=== PATIENT | male | born 1965 | race African-American/Black ===

== ENCOUNTER 2019-01-31 13:36 | Inpatient (IN) | payer MEDICARE, OTHER ==
[2019-01-31] MEDS ORDERED: Ampicillin/Sulbactam 3 GM in Sodium Chloride 0.9% 100 ML IVPB SCH (15:15)
[2019-01-31 15:16] LABS: Hemoglobin 12.7 g/dL (14.0-18.0); Mean Corpuscular HGB CONC 33.2 g/dL (32.0-36.0); Mean Corpuscular Volume 87.3 fL (78.0-98.0); Mean Platelet Volume 7.8 fL (7.4-10.4); Platelet Count 208 thou/uL (130-400); RBC Distribution Width 11.1 % (11.5-14.5); Red Blood Cell (RBC) Count 4.39 mill/uL (4.70-6.10)
[2019-01-31 15:34] LABS: ALT (SGPT) 14 U/L (8-55); AST (SGOT) 28 U/L (5-34); Albumin 3.8 g/dL (3.5-5.0); Alkaline Phosphatase 62 U/L (40-150); Anion Gap 12 mmol/L (10-20); BUN (Urea Nitrogen) 19 mg/dL (8.4-25.7); Bilirubin, Total 1.2 mg/dL (0.2-1.2); Calc. Creatinine Clearance 0 mL/min (70-130); Calcium 9.4 mg/dL (7.8-10.44); Carbon Dioxide 25 mmol/L (22-29); Chloride 104 mmol/L (98-107); Estimated GFR-MDRD Greater than 90; Globulin 3.8 g/dL (2.4-3.5); Glucose 144 mg/dL (70-105); Protein, Total 7.6 g/dL (6.0-8.3); Sodium 137 mmol/L (136-145)
[2019-01-31 15:38] LABS: Band 15 % (5-11); Lymphocytes 4 % (21-51); MDiff Complete? YES; Monocytes 3 % (0-10); Neutrophil 78 % (42-75); Platelet Morphology Comment Appears Adequate
[2019-01-31] MEDS ORDERED: Acetaminophen 500 MG TAB ONE (16:39)
[2019-01-31] MEDS ORDERED: hydrALAZINE 20 MG/ML VIAL SLOW IVP PRN (18:02)
[2019-01-31] MEDS ORDERED: Benzonatate 100 MG CAP PO PRN (18:02)
[2019-01-31] MEDS ORDERED: Acetaminophen 500 MG TAB PO PRN (18:02)
[2019-01-31] MEDS ORDERED: HYDROcodone/Acetaminophen 5/325 mg Tablet PO PRN ×2 (18:02)
[2019-01-31] MEDS ORDERED: Calcium Carbonate 500 MG ChewTAB PO PRN (18:02)
[2019-01-31] MEDS ORDERED: cloNIDine 0.1 MG TAB PO PRN (18:02)
[2019-01-31] MEDS ORDERED: Bisacodyl 5 MG TAB PO PRN ×2 (18:02)
[2019-01-31] MEDS ORDERED: Senokot S 8.6-50 MG TAB PO PRN ×2 (18:02)
[2019-01-31] MEDS ORDERED: Ondansetron PF 4 MG/2 ML Vial IVP PRN ×2 (18:02)
[2019-01-31] MEDS ORDERED: Diabetic Tussin 200 MG/10 ML UDCUP PO PRN (18:02)
[2019-01-31] MEDS ORDERED: Nitroglycerin 0.4 MG TAB (25 Tab Bottle) SL PRN (18:02)
[2019-01-31] MEDS ORDERED: Enoxaparin Sodium 40 MG/0.4 ML SYRINGE SC SCH (18:15)
[2019-01-31] MEDS ORDERED: traMADol HCl 50 MG TAB PO PRN (18:20)
--- NOTE | 2019-01-31 19:16 | CON ---
DATE OF CONSULTATION: 01/31/2019 CONSULTING PHYSICIAN: Dr. Jair Lake. REASON FOR CONSULTATION: Left finger infection. HISTORY OF PRESENT ILLNESS: This is a 53-year-old male, who presented to Urgent Care yesterday for swelling and pain to his left index finger. The patient states that he does not recall any trauma or injury. This was started on its own. They were prescribed some sort of antibiotic pill, which his mother states they did not obtain, but then returned to the Urgent Care again today for worsening symptoms and were transferred to our facility. Currently at bedside, most of the history is provided by the patient's mother who is at bedside. She denies any fever or drainage from the finger. He is right-hand dominant. She states that she did not obtain the antibiotics yesterday because this condition seemed to be worsening. He has no history of prior infections. PAST MEDICAL HISTORY: The patient is developmentally delayed. PAST SURGICAL HISTORY: Denies. SOCIAL HISTORY: The patient denies any alcohol use, tobacco use, or illicit drug use. He lives at home with his mother. FAMILY HISTORY: Reviewed and noncontributory. REVIEW OF SYSTEMS: A 10-point review of systems conducted and otherwise negative except for stated above. PHYSICAL EXAMINATION: VITAL SIGNS: Blood pressure is 142/85, pulse of 101, respiratory rate of 19 and unlabored, temperature of 100.0, and O2 saturation is 97% on room air. T-max of 102.5 at 1641 hours today. GENERAL: The patient is awake and alert. He is in no apparent distress. He is pleasant and cooperative with exam findings today. HEENT: Head is normocephalic and atraumatic. NECK: Supple. Trachea midline. Breathing nonlabored. EXTREMITIES: The left upper extremity was evaluated. The left index finger is noted to be slightly erythematous with fluctuance along the flexor and extensor sides. The patient reports sensation intact distally. Capillary refill 3 seconds. He has pain with active range of motion including flexion and extension. This is somewhat limited. Remainder of extremities evaluated and no other injuries or infections are noted. LABORATORY VALUES: Reviewed today. These include a CBC which includes white blood cell count of 12.0, hemoglobin of 12.7, hematocrit of 38.3, and platelet count of 208. Chemistry panel within normal limits with the exception of glucose of 144. ASSESSMENT: Left index finger abscess. PLAN: At this point, the patient will be admitted to the Medicine Service. He will be n.p.o. after midnight. We will talk to our colleague and hand surgeon, Dr. Villarreal, to see if he would like to take this case on for tomorrow. If not, we will be happy to proceed with incision and drainage tomorrow for left index finger abscess. Risks, benefits, and alternatives were discussed with the patient and family today. They verbalized understanding. Postoperatively, we will plan to await cultures and determine an antibiotic before discharging home. Job ID: [id number]
[2019-02-01] MEDS: Sodium Chloride 0.9% 1,000 ML IV SCH ×2 (00:03→08:12)
[2019-02-01] MEDS: Famotidine 20 MG TAB PO SCH ×3 (00:04→21:22)
[2019-02-01] MEDS: Ampicillin/Sulbactam 3 GM in Sodium Chloride 0.9% 100 ML IVPB SCH ×5 (00:05→21:22)
[2019-02-01 00:45] VITALS: BMI 25.0
[2019-02-01] MEDS: Acetaminophen 325 MG TAB PO PRN ×2 (04:35→16:42)
[2019-02-01 06:23] LABS: Anion Gap 11 mmol/L (10-20); BUN (Urea Nitrogen) 22 mg/dL (8.4-25.7); Calc. Creatinine Clearance 80 mL/min (70-130); Calcium 8.8 mg/dL (7.8-10.44); Carbon Dioxide 24 mmol/L (22-29); Chloride 108 mmol/L (98-107); Estimated GFR-MDRD 81; Glucose 122 mg/dL (70-105); Potassium 4.1 mmol/L (3.5-5.1); Sodium 139 mmol/L (136-145)
[2019-02-01 06:35] LABS: Band 11 % (5-11); Hemoglobin 11.8 g/dL (14.0-18.0); Lymphocytes 13 % (21-51); MDiff Complete? YES; Mean Corpuscular HGB CONC 32.9 g/dL (32.0-36.0); Mean Corpuscular Hemoglobin 29.1 pg (27.0-31.0); Mean Corpuscular Volume 88.4 fL (78.0-98.0); Mean Platelet Volume 7.4 fL (7.4-10.4); Monocytes 12 % (0-10); Neutrophil 64 % (42-75); Platelet Count 218 thou/uL (130-400); RBC Distribution Width 11.2 % (11.5-14.5); Red Blood Cell (RBC) Count 4.06 mill/uL (4.70-6.10); White Blood Cell (WBC) Count 11.7 thou/uL (4.8-10.8)
[2019-02-01] MEDS ORDERED: Fentanyl 100 MCG/2 ML VIAL ONE ×2 (08:46→10:23)
[2019-02-01] MEDS ORDERED: Neomycin-Polymyxin 1 ML AMP ONE (08:52)
--- NOTE | 2019-02-01 11:47 | PDOC.PN ---
- Subjective Encounter Start Date: 02/01/19 Encounter Start Time: 11:45 Subjective: seen in PACU .s/p I&D .feels ok - Objective MAR Reviewed: Yes Vital Signs & Weight: Vital Signs (12 hours) Temp Pulse Resp BP BP Pulse Ox 02/01/19 07:27 98.8 F 95 18 133/87 98 02/01/19 04:00 103.2 F H 123 H 20 148/88 H 98 02/01/19 00:00 102.9 F H 110 H 20 129/81 100 Weight Weight 165 lb Result Diagrams: 02/01/19 05:39 02/01/19 05:39 Additional Labs: Microbiology 01/31/19 14:51 Venous blood - Right Hand Blood Culture - Preliminary Specimen has been received and culture in progress. No Growth to date. 01/31/19 14:39 Venous blood - Right Arm Blood Culture - Preliminary Specimen has been received and culture in progress. No Growth to date. Laboratory Tests 01/31/19 02/01/19 14:26 05:39 Neutrophils % (Manual) 78 H 64 Phys Exam - Physical Examination Constitutional: NAD HEENT: PERRLA, moist MMs, sclera anicteric, oral pharynx no lesions Neck: no nodes, no JVD, supple, full ROM Respiratory: no wheezing, no rales, no rhonchi, clear to auscultation bilateral Cardiovascular: RRR, no significant murmur Gastrointestinal: soft, non-tender, no distention, positive bowel sounds Musculoskeletal: no edema, pulses present Neurological: non-focal, normal sensation, moves all 4 limbs Psychiatric: normal affect, A&O x 3 Skin: no rash Dx/Plan (1) Sepsis Code(s): A41.9 - SEPSIS, UNSPECIFIED ORGANISM Status: Acute Comment: due to #2. cont empiric IV ABx. 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 -: wound care -: am labs * . Review of Systems - Review of Systems Constitutional: negative: fever, chills, sweats, weakness, malaise, other ENT: negative: Ear Pain, Ear Discharge, Nose Pain, Nose Discharge, Nose Congestion, Mouth Pain, Mouth Swelling, Throat Pain, Throat Swelling, Other Respiratory: negative: Cough, Dry, Shortness of Breath, Hemoptysis, SOB with Excertion, Pleuritic Pain, Sputum, Wheezing Cardiovascular: negative: chest pain, palpitations, orthopnea, paroxysmal nocturnal dyspnea, edema, light headedness, other Gastrointestinal: negative: Nausea, Vomiting, Abdominal Pain, Diarrhea, Constipation, Melena, Hematochezia, Other Genitourinary: negative: Dysuria, Frequency, Incontinence, Hematuria, Retention , Other Musculoskeletal: negative: Neck Pain, Shoulder Pain, Arm Pain, Back Pain, Hand Pain, Leg Pain, Foot Pain, Other Neurological: negative: Weakness, Numbness, Incoordination, Change in Speech, Confusion, Seizures, Other - Medications/Allergies Allergies/Adverse Reactions: Allergies Allergy/AdvReac Type Severity Reaction Status Date / Time No Known Allergies Allergy Unverified 02/01/19 00:41 Medications: Current Medications Acetaminophen (Tylenol) 650 mg PO Q4H PRN PRN Reason: Headache/Fever/Mild Pain (1-3) Last Admin: 02/01/19 04:35 Dose: 650 mg Hydrocodone Bitart/Acetaminophen ([place] 5/325) 1 tab PO Q4H PRN PRN Reason: Moderate Pain (4-6) Hydrocodone Bitart/Acetaminophen ([place] 5/325) 2 tab PO Q4H PRN PRN Reason: Severe Pain (7-10) Benzonatate (Tessalon) 100 mg PO Q6H PRN PRN Reason: Cough Bisacodyl (Dulcolax) 10 mg PO DAILYPRN PRN PRN Reason: Constipation Calcium Carbonate (Tums) 1,000 mg PO Q4H PRN PRN Reason: Heartburn or Indigestion Clonidine (Catapres) 0.1 mg PO Q4H PRN PRN Reason: SBP > _160___ Famotidine (Pepcid) 20 mg PO BID [facility] Last Admin: 02/01/19 07:28 Dose: Not Given Guaifenesin (Robitussin Sf) 200 mg PO Q4H PRN PRN Reason: Cough Hydralazine HCl (Apresoline) 10 mg SLOW IVP Q4H PRN PRN Reason: SBP > 180 and HR < 70 Sodium Chloride (Normal Saline 0.9%) 1,000 mls @ 75 mls/hr IV .[id number] [facility] Last Admin: 02/01/19 08:12 Dose: Not Given Ampicillin Sodium/Sulbactam (Sodium 3 gm/ Sodium Chloride) 100 mls @ 200 mls/ hr IVPB 0400,1000,1600,2200 [facility] Last Admin: 02/01/19 04:55 Dose: 100 mls Doxycycline Hyclate 100 mg/ (Sodium Chloride) 100 mls @ 100 mls/hr IVPB Q12HR [facility] Last Admin: 02/01/19 00:30 Dose: 100 mls Nitroglycerin (Nitrostat) 0.4 mg SL Q5MIN PRN PRN Reason: Chest Pain Ondansetron HCl (Zofran) 4 mg IVP Q6H PRN PRN Reason: Nausea/Vomiting Senna/Docusate Sodium (Senokot S) 2 tab PO BID PRN PRN Reason: Constipation Tramadol HCl (Ultram) 50 mg PO Q4H PRN PRN Reason: Moderate Pain (4-6)
[2019-02-01] MEDS ORDERED: Saccharomyces boulardii 250 MG CAP PO SCH (13:00)
[2019-02-01] MEDS ORDERED: Lidocaine 1% PF 5 ML VIAL ONE (16:32)
[2019-02-01] MEDS ORDERED: PROPOFOL 200 MG/20 ML VIAL ONE (16:32)
[2019-02-02] MEDS: Acetaminophen 325 MG TAB PO PRN ×2 (00:35→20:31)
[2019-02-02] MEDS: Sodium Chloride 0.9% 1,000 ML IV SCH (00:36)
[2019-02-02] MEDS: Ampicillin/Sulbactam 3 GM in Sodium Chloride 0.9% 100 ML IVPB SCH ×4 (05:15→22:33)
[2019-02-02 05:51] LABS: #Basophils 0.1 thou/uL (0.0-0.2); #Eosinphils 0.1 thou/uL (0.0-0.7); #Lymphocytes 1.6 thou/uL (1.20-3.40); #Monocytes 1.1 thou/uL (0.11-0.59); #Neutrophils 5.2 thou/uL (1.40-6.50); %Basophils 0.7 % (0.0-1.0); %Eosinophils 0.9 % (0.0-10.0); %Lymphocytes 20.3 % (21.0-51.0); %Monocytes 13.8 % (0.0-10.0); %Neutrophils 64.4 % (42.0-75.0); Hemoglobin 11.9 g/dL (14.0-18.0); Mean Corpuscular Hemoglobin 28.7 pg (27.0-31.0); Mean Corpuscular Volume 89.9 fL (78.0-98.0); Mean Platelet Volume 7.5 fL (7.4-10.4); Platelet Count 217 thou/uL (130-400); RBC Distribution Width 11.3 % (11.5-14.5); Red Blood Cell (RBC) Count 4.15 mill/uL (4.70-6.10); White Blood Cell (WBC) Count 8.1 thou/uL (4.8-10.8)
[2019-02-02 06:40] LABS: Anion Gap 11 mmol/L (10-20); BUN (Urea Nitrogen) 13 mg/dL (8.4-25.7); Calc. Creatinine Clearance 113 mL/min (70-130); Calcium 8.9 mg/dL (7.8-10.44); Carbon Dioxide 24 mmol/L (22-29); Chloride 104 mmol/L (98-107); Estimated GFR-MDRD Greater than 90; Glucose 96 mg/dL (70-105); Sodium 135 mmol/L (136-145)
[2019-02-02] MEDS: Famotidine 20 MG TAB PO SCH ×2 (09:03→20:31)
[2019-02-02] MEDS: Saccharomyces boulardii 250 MG CAP PO SCH (09:03)
--- NOTE | 2019-02-02 14:14 | PDOC.PN ---
- Subjective Encounter Start Date: 02/02/19 Encounter Start Time: 14:12 Subjective: feels well. denies any pain inthe operated finger -: no fever/chills.no new complaints -: eating well.no nausea/vomiting - Objective MAR Reviewed: Yes Vital Signs & Weight: Vital Signs (12 hours) Temp Pulse Resp BP BP Pulse Ox 02/02/19 10:56 99.2 F 93 16 124/78 98 02/02/19 07:19 98.9 F 89 16 119/75 99 02/02/19 04:00 98.7 F 84 18 121/78 100 Weight Weight 165 lb I&O: 02/01/19 02/02/19 02/03/19 06:59 06:59 06:59 Intake Total 620 Balance 620 Result Diagrams: 02/02/19 05:18 02/02/19 05:18 Additional Labs: Microbiology 02/01/19 10:59 Finger - E swab Bacterial Culture - Preliminary 01/31/19 14:51 Venous blood - Right Hand Blood Culture - Preliminary Specimen has been received and culture in progress. No Growth to date. 01/31/19 14:39 Venous blood - Right Arm Blood Culture - Preliminary Specimen has been received and culture in progress. No Growth to date. Phys Exam - Physical Examination Constitutional: NAD HEENT: PERRLA, moist MMs, sclera anicteric, oral pharynx no lesions Neck: no nodes, no JVD, supple, full ROM Respiratory: no wheezing, no rales, no rhonchi, clear to auscultation bilateral Cardiovascular: RRR, no significant murmur Gastrointestinal: soft, non-tender, no distention, positive bowel sounds Musculoskeletal: no edema, pulses present Left index finger is post-op Neurological: non-focal, normal sensation, moves all 4 limbs Psychiatric: normal affect, A&O x 3 Skin: no rash Dx/Plan (1) Sepsis Code(s): A41.9 - SEPSIS, UNSPECIFIED ORGANISM Status: Acute Comment: due to #2. cont empiric IV ABx. 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 leucocytosis improved and no fever/tachycardia -: DC IVF and cont IV ABx. -: follow final Cx results -: appreciate Ortho input -: am labs.HD stable * . Review of Systems - Review of Systems Constitutional: negative: fever, chills, sweats, weakness, malaise, other ENT: negative: Ear Pain, Ear Discharge, Nose Pain, Nose Discharge, Nose Congestion, Mouth Pain, Mouth Swelling, Throat Pain, Throat Swelling, Other Respiratory: negative: Cough, Dry, Shortness of Breath, Hemoptysis, SOB with Excertion, Pleuritic Pain, Sputum, Wheezing Cardiovascular: negative: chest pain, palpitations, orthopnea, paroxysmal nocturnal dyspnea, edema, light headedness, other Gastrointestinal: negative: Nausea, Vomiting, Abdominal Pain, Diarrhea, Constipation, Melena, Hematochezia, Other Genitourinary: negative: Dysuria, Frequency, Incontinence, Hematuria, Retention , Other Musculoskeletal: negative: Neck Pain, Shoulder Pain, Arm Pain, Back Pain, Hand Pain, Leg Pain, Foot Pain, Other Neurological: negative: Weakness, Numbness, Incoordination, Change in Speech, Confusion, Seizures, Other - Medications/Allergies Allergies/Adverse Reactions: Allergies Allergy/AdvReac Type Severity Reaction Status Date / Time No Known Allergies Allergy Unverified 02/01/19 00:41 Medications: Current Medications Acetaminophen (Tylenol) 650 mg PO Q4H PRN PRN Reason: Headache/Fever/Mild Pain (1-3) Last Admin: 02/02/19 00:35 Dose: 650 mg Hydrocodone Bitart/Acetaminophen ([place] 5/325) 1 tab PO Q4H PRN PRN Reason: Moderate Pain (4-6) Hydrocodone Bitart/Acetaminophen ([place] 5/325) 2 tab PO Q4H PRN PRN Reason: Severe Pain (7-10) Benzonatate (Tessalon) 100 mg PO Q6H PRN PRN Reason: Cough Bisacodyl (Dulcolax) 10 mg PO DAILYPRN PRN PRN Reason: Constipation Calcium Carbonate (Tums) 1,000 mg PO Q4H PRN PRN Reason: Heartburn or Indigestion Clonidine (Catapres) 0.1 mg PO Q4H PRN PRN Reason: SBP > _160___ Famotidine (Pepcid) 20 mg PO BID [facility] Last Admin: 02/02/19 09:03 Dose: 20 mg Guaifenesin (Robitussin Sf) 200 mg PO Q4H PRN PRN Reason: Cough Hydralazine HCl (Apresoline) 10 mg SLOW IVP Q4H PRN PRN Reason: SBP > 180 and HR < 70 Ampicillin Sodium/Sulbactam (Sodium 3 gm/ Sodium Chloride) 100 mls @ 200 mls/ hr IVPB 0400,1000,1600,2200 [facility] Last Admin: 02/02/19 10:31 Dose: 100 mls Doxycycline Hyclate 100 mg/ (Sodium Chloride) 100 mls @ 100 mls/hr IVPB Q12HR [facility] Last Admin: 02/02/19 09:04 Dose: 100 mls Nitroglycerin (Nitrostat) 0.4 mg SL Q5MIN PRN PRN Reason: Chest Pain Ondansetron HCl (Zofran) 4 mg IVP Q6H PRN PRN Reason: Nausea/Vomiting Saccharomyces Boulardii (Florastor) 250 mg PO DAILY [facility] Last Admin: 02/02/19 09:03 Dose: 250 mg Senna/Docusate Sodium (Senokot S) 2 tab PO BID PRN PRN Reason: Constipation Tramadol HCl (Ultram) 50 mg PO Q4H PRN PRN Reason: Moderate Pain (4-6)
[2019-02-03] MEDS: Ampicillin/Sulbactam 3 GM in Sodium Chloride 0.9% 100 ML IVPB SCH ×4 (04:20→22:59)
[2019-02-03 06:18] LABS: #Eosinphils 0.1 thou/uL (0.0-0.7); #Lymphocytes 1.1 thou/uL (1.20-3.40); #Monocytes 0.7 thou/uL (0.11-0.59); #Neutrophils 3.4 thou/uL (1.40-6.50); %Basophils 0.6 % (0.0-1.0); %Lymphocytes 19.9 % (21.0-51.0); %Monocytes 12.9 % (0.0-10.0); %Neutrophils 64.6 % (42.0-75.0); Hemoglobin 11.1 g/dL (14.0-18.0); Mean Corpuscular HGB CONC 32.9 g/dL (32.0-36.0); Mean Corpuscular Hemoglobin 28.9 pg (27.0-31.0); Mean Platelet Volume 7.7 fL (7.4-10.4); Platelet Count 247 thou/uL (130-400); RBC Distribution Width 11.1 % (11.5-14.5); Red Blood Cell (RBC) Count 3.84 mill/uL (4.70-6.10); White Blood Cell (WBC) Count 5.3 thou/uL (4.8-10.8)
[2019-02-03 06:37] LABS: Anion Gap 13 mmol/L (10-20); BUN (Urea Nitrogen) 21 mg/dL (8.4-25.7); Calc. Creatinine Clearance 86 mL/min (70-130); Carbon Dioxide 22 mmol/L (22-29); Chloride 104 mmol/L (98-107); Estimated GFR-MDRD 88; Glucose 91 mg/dL (70-105); Sodium 135 mmol/L (136-145)
[2019-02-03] MEDS: Famotidine 20 MG TAB PO SCH ×2 (08:42→21:12)
[2019-02-03] MEDS: Saccharomyces boulardii 250 MG CAP PO SCH (08:43)
--- NOTE | 2019-02-03 15:37 | PDOC.PN ---
- Subjective Encounter Start Date: 02/03/19 Encounter Start Time: 10:15 Subjective: pt up in bed no complains - Objective Vital Signs & Weight: Vital Signs (12 hours) Temp Pulse Resp BP Pulse Ox 02/03/19 11:19 98.3 F 78 18 121/81 97 02/03/19 07:28 98.2 F 87 18 120/68 96 02/03/19 04:00 98.2 F 80 18 129/87 98 Weight Admit Weight 165 lb Weight 165 lb I&O: 02/02/19 02/03/19 02/04/19 06:59 06:59 06:59 Intake Total 3614 480 Balance 3614 480 Result Diagrams: 02/03/19 05:33 02/03/19 05:33 Phys Exam - Physical Examination Neck: no nodes, no JVD, supple, full ROM Respiratory: no wheezing, no rales, no rhonchi, wheezing present, clear to auscultation bilateral Cardiovascular: RRR, no significant murmur, no rub, gallop, irregular Gastrointestinal: soft, non-tender, no distention, positive bowel sounds Dx/Plan (1) Abscess of finger of left hand Code(s): L02.512 - CUTANEOUS ABSCESS OF LEFT HAND Status: Acute Comment: s/ p I&D 02/01/19.follow Surgical Cx results.cont Unasyn and Doxycycline IV (2) Sepsis Code(s): A41.9 - SEPSIS, UNSPECIFIED ORGANISM Status: Acute Comment: due to #2. cont empiric IV ABx. 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 Review of Systems - Review of Systems Other: unable to obtain - Medications/Allergies Allergies/Adverse Reactions: Allergies Allergy/AdvReac Type Severity Reaction Status Date / Time No Known Allergies Allergy Unverified 02/01/19 00:41 Medications: Current Medications Acetaminophen (Tylenol) 650 mg PO Q4H PRN PRN Reason: Headache/Fever/Mild Pain (1-3) Last Admin: 02/02/19 20:31 Dose: 650 mg Hydrocodone Bitart/Acetaminophen ([place] 5/325) 1 tab PO Q4H PRN PRN Reason: Moderate Pain (4-6) Last Admin: 02/02/19 16:52 Dose: 1 tab Hydrocodone Bitart/Acetaminophen ([place] 5/325) 2 tab PO Q4H PRN PRN Reason: Severe Pain (7-10) Last Admin: 02/03/19 12:04 Dose: 2 tab Benzonatate (Tessalon) 100 mg PO Q6H PRN PRN Reason: Cough Bisacodyl (Dulcolax) 10 mg PO DAILYPRN PRN PRN Reason: Constipation Calcium Carbonate (Tums) 1,000 mg PO Q4H PRN PRN Reason: Heartburn or Indigestion Clonidine (Catapres) 0.1 mg PO Q4H PRN PRN Reason: SBP > _160___ Famotidine (Pepcid) 20 mg PO BID [facility] Last Admin: 02/03/19 08:42 Dose: 20 mg Guaifenesin (Robitussin Sf) 200 mg PO Q4H PRN PRN Reason: Cough Hydralazine HCl (Apresoline) 10 mg SLOW IVP Q4H PRN PRN Reason: SBP > 180 and HR < 70 Ampicillin Sodium/Sulbactam (Sodium 3 gm/ Sodium Chloride) 100 mls @ 200 mls/ hr IVPB 0400,1000,1600,2200 [facility] Last Admin: 02/03/19 10:28 Dose: 100 mls Doxycycline Hyclate 100 mg/ (Sodium Chloride) 100 mls @ 100 mls/hr IVPB Q12HR [facility] Last Admin: 02/03/19 08:41 Dose: 100 mls Nitroglycerin (Nitrostat) 0.4 mg SL Q5MIN PRN PRN Reason: Chest Pain Ondansetron HCl (Zofran) 4 mg IVP Q6H PRN PRN Reason: Nausea/Vomiting Saccharomyces Boulardii (Florastor) 250 mg PO DAILY [facility] Last Admin: 02/03/19 08:43 Dose: 250 mg Senna/Docusate Sodium (Senokot S) 2 tab PO BID PRN PRN Reason: Constipation Tramadol HCl (Ultram) 50 mg PO Q4H PRN PRN Reason: Moderate Pain (4-6)
[2019-02-03] MEDS: Acetaminophen 325 MG TAB PO PRN (21:12)
[2019-02-04] MEDS: Ampicillin/Sulbactam 3 GM in Sodium Chloride 0.9% 100 ML IVPB SCH ×4 (03:59→21:56)
[2019-02-04] MEDS: Famotidine 20 MG TAB PO SCH ×2 (10:51→20:25)
[2019-02-04] MEDS: Saccharomyces boulardii 250 MG CAP PO SCH (10:51)
[2019-02-05] MEDS: Ampicillin/Sulbactam 3 GM in Sodium Chloride 0.9% 100 ML IVPB SCH ×2 (04:49→10:52)
[2019-02-05] MEDS: Saccharomyces boulardii 250 MG CAP PO SCH (08:58)
[2019-02-05] MEDS: Famotidine 20 MG TAB PO SCH (08:58)
[2019-02-05 15:59] VITALS: BP 119/57; TEMP 97.6
[2019-02-05] MEDS ORDERED: Amoxicillin/Potassium Clav 875 MG TAB PO SCH (21:00)
--- NOTE | 2019-02-05 22:18 | DIS ---
DATE OF ADMISSION: 01/31/2019 DATE OF DISCHARGE: 02/05/2019 DISCHARGE DIAGNOSES: As of the following; 1. Abscess of the finger of the left hand. 2. Sepsis. 3. Mild mental slowing. HOSPITAL COURSE: The patient is a 53-year-old male who initially presented to the hospital on 01/31 for left finger infection. The patient does not recall any trauma or injury. However, he also has some mental slowness and unable to provide adequate history. Apparently, stated that he was prescribed some antibiotics which the mother states that he did not obtain and came to the hospital for worsening symptoms. Please look at the H and P for further details. The patient was taken to Surgery by Orthopedics, and I do not currently have the surgical report at present. The patient also had a swab which indicated Streptococcus anginosus, it was a mixed culture. I did call the lab, who stated that most likely some viridans and Streptococcus anginosus. The patient continued to improve throughout the hospital stay. He was prescribed antibiotics on the day of discharge, and also he has home health for dressing changes to his left hand. HOME MEDICATIONS: His home medications will be as of the following; 1. Florastor 250 p.o. daily. 2. Augmentin 875/125 one p.o. b.i.d. 3. Doxycycline 100 mg p.o. q.12 hours. PHYSICAL EXAMINATION: VITAL SIGNS: 97.6, 76, 16, 96% on room air, 119/57. GENERAL: He is awake, alert, and oriented x3. Does not appear in distress. CV: S1 and S2, present. No murmurs, rubs, or gallops. ABDOMEN: Soft and nontender. Bowel sounds are present x2. EXTREMITIES: No edema. Pedal pulses are present x2. Job ID: [id number]
--- NOTE | 2019-02-11 16:13 | OP ---
DATE OF PROCEDURE: 01/31/2019 OPERATIONS: Partial amputation of left index finger with irrigation and debridement of flexor tendon and dorsal extensor tendon. PREOPERATIVE DIAGNOSIS: Left index finger severe infection with necrosis of tip and tenosynovitis of the flexor and extensor tendons. POSTOPERATIVE DIAGNOSIS: Left index finger severe infection with necrosis of tip and tenosynovitis of the flexor and extensor tendons. COMPLICATIONS: None. ESTIMATED BLOOD LOSS: Minimal. ANESTHESIA: General plus local. IMPLANTS: None. INDICATIONS: Mr. Dunbar is a 53-year-old male who has developed a severe infection of the left index finger. This is a chronic infection. He was indicated for irrigation and debridement to hopefully eradicate infection and salvage the remainder of his finger. He will need a partial amputation given necrosis of the distal aspect. He is aware of risks and benefits and wants to proceed. DESCRIPTION OF PROCEDURE: Mr. Dunbar was identified in the preoperative holding area. His correct extremity was marked. He was carried to the operating room. He was positioned supine. General anesthesia was induced. A multidisciplinary time-out was performed. He was given intravenous antibiotics. At this point, we made an incision over the distal aspect of the finger near the nail. There was copious purulence. This was cultured. We worked more deeply and found the distal phalanx was necrotic with no blood supply. Decision was made to amputate the finger at the DIP joint. This was accomplished sharply. We then removed the distal aspect of the middle phalanx with a rongeur. We then worked more proximally along the dorsal cortex and extending the wound. There was purulence along the dorsal extensor tendon. This was irrigated and debrided. We then worked over the volar aspect as well, extending the incision proximally, irrigating the flexor tendon. All purulence was removed. We thoroughly irrigated with copious lavage. We used a rongeur as well as a knife to debride the soft tissues. At this point, we loosely closed after thorough irrigation. Nylon sutures were used. A sterile dressing was applied. The patient was taken to the recovery room in good condition. Job ID: [id number]
== END 2019-02-05 15:17 | disposition home or self-care (01) | DRG 854 ==
LOC: ERS 13:36 → T4-B 17:54
PROVIDERS: ADMIT Internal Medicine; ATTEND Internal Medicine
PROC: 0X6P0Z1 Detachment at Left Index Finger, High, Open Approach (ICD-10-PCS; principal; 2019-01-31)
PROC: 0LD80ZZ Extraction of Left Hand Tendon, Open Approach (ICD-10-PCS; 2019-01-31)
DX: A41.9 Sepsis, unspecified organism (principal); L02.512 Cutaneous abscess of left hand; F70 Mild intellectual disabilities
CPT/HCPCS: 36415; 80048; 80053; 83605; 85025; 86850; 86900; 86901; 87040; 87070; 87077; 87205; 96365; J0295; J2001; J2704; J3010; J3490

== ENCOUNTER 2024-05-04 09:12 | Emergency (ER) | payer MEDICARE, OTHER | END 2024-05-04 09:59 | disposition home or self-care (01) | LOC: ERS 09:12 | DX: K40.90 Unilateral inguinal hernia, without obstruction or gangrene, not specified as recurrent (principal) | CPT/HCPCS: 99283 ==